=== PATIENT | female | born 1930 | race Caucasian/White ===

== ENCOUNTER 2017-03-14 19:24 | Inpatient (IN) ==
--- NOTE | 2017-03-14 20:32 | PROVIDER DOCUMENTATION ---
HPI-General Adult - General Chief Complaint: Diarrhea Stated Complaint: DIARRHEA X 2WEEKS Time Seen by Provider: 03/14/17 20:07 Source: patient Allergies/Adverse Reactions: Patient Allergies Allergy/AdvReac Type Severity Reaction Status Date / Time Sulfa (Sulfonamide Allergy RASH Verified 03/14/17 20:41 Antibiotics) Home Medications: Home Medication List Medication Instructions Recorded Confirmed Last Taken Type Alprazolam [Xanax] 0.25 mg PO DIRECTED 01/31/17 03/14/17 03/14/17 History Apixaban [Eliquis] 5 mg PO BID 01/31/17 03/14/17 03/14/17 History Clonidine [Catapres] 0.1 mg PO DIRECTED 01/31/17 03/14/17 Unknown History Potassium Chloride [Klor-Con M10] 10 meq PO DAILY 01/31/17 03/14/17 03/13/17 History Ramipril 2.5 mg PO DAILY 01/31/17 03/14/17 03/14/17 History Ropinirole [Requip] 0.25 mg PO HS 01/31/17 03/14/17 03/13/17 History Amiodarone [Cordarone] 1 tab PO DAILY 03/14/17 03/14/17 03/14/17 History Dexlansoprazole [Dexilant] 1 tab PO DAILY 03/14/17 03/14/17 03/14/17 History Diphenoxylate/Atropine [Lomotil] 5 mg PO TID 03/14/17 03/14/17 03/14/17 History Metronidazole [Metronidazole] 1 tab PO TID 03/14/17 03/14/17 03/14/17 History Clonidine [Catapres] 0.1 mg PO PRN PRN 03/15/17 03/15/17 Unknown History - History of Present Illness -Gen Adult Nature of Presenting Problems: 86 YO WF presents with 3 weeks of watery diarrhea. Has had 10-15 loose watery stools per day, 3 in the last hour. Feels "like she's going to " she feels so weak and can't control her bowels. Had a C diff test with her PCM that was negative two days ago, started on Flagyl but has only been two days on the medication. Did start to get a little more firm and brown but still having many stools. Was on Cipro before the Flagyl, but doesn't know why. No hx of recent hospitalization or other antibiotic use; no travel. Has nausea; denies abdominal pain, fever, vomiting, back pain, urinary problems/changes. Is scheduled to have a pacemaker at the end of the month. Location of Pain/Injury: reports: abdomen Pain Radiation: reports: no radiation Quality of Pain: reports: cramping Severity: reports: moderate Onset/Duration: reports: other (3 weeks ago) Timing: reports: still present Context/Activities at Onset: reports: none Modifying Factors: improves with: nothing Associated Symptoms: reports: diarrhea, fatigue, heartburn (chronic heartburn), loss of appetite, nausea, weakness. denies: anxiety, arm pain, back/neck pain, chest pain, constipation, cough, diaphoresis, dizziness, EENT symptoms, fever/ chills, genitourinary problems, headaches, malaise, muscle aches, sinus congestion/drainage, rash, seizure, shortness of breath, syncope, vomiting Similar Symptoms Previously?: No Recently seen or treated by another doctor?: Yes (Sees Dr Her; spoke with him on the phone in last few days, no eval) Review of Systems - Adult - REVIEW OF SYSTEMS - ADULT Constitutional: reports: fatique. denies: chills, fever, night sweats Eyes: denies: decreased vision, blurred vision, redness Ears, Nose, Mouth & Throat: denies: ear pain, throat pain Cardiovascular: denies: chest pain, edema, syncope Respiratory: denies: chronic cough, cough, shortness of breath, wheezing Gastrointestinal: reports: diarrhea, nausea, poor appetite. denies: abdominal pain, hematemesis, constipation, rectal bleeding, vomiting Genitourinary: denies: dysuria, discharge, frequency, flank pain, hematuria, urgency Musculoskeletal: reports: muscle weakness. denies: bone pain, back pain, joint pain, joint swelling, muscle aches, neck pain Integumentary: denies: itching, rash, skin sores/ulcer Neurological: denies: dizziness/vertigo, headache/migraines, numbness Past History - Adult - PAST MEDICAL HISTORY-ADULT Review of Records: reports: Old Records Reviewed, Nursing Assessment Review, Medications Reviewed, Social history reviewed & non-contributory. Major Childhood Illnesses: reports: denies history Cardiovascular: reports: denies history Respiratory: reports: denies history Gastrointestinal: reports: denies history Obstetrical/Gynecological: reports: denies history Genitourinary: reports: denies history Musculoskeletal: reports: denies history Neurological: reports: denies history Endocrine/Immune: reports: denies history Other Conditions: reports: denies history - PRIOR SURGERIES/PROCEDURES Surgical/Procedure History: reports: reviewed, not pertinent - IMMUNIZATION STATUS Childhood Immunizations: See Nurse Assessment Flu Vaccine: See Nurse Assessment - FAMILY HISTORY Family History: reviewed, not pertinent Physical Exam-General - PHYSICAL EXAM-ADULT Initial Vital Signs Reviewed: Yes - CONSTITUTIONAL General Appearance: appears well, alert, mild distress - EYES Eyes: PERRL/EOMI, pink conjunctivae. negative: sclera injected, scleral icterus , subconjunctival hemorrhage - HEAD, EARS, NOSE, MOUTH & THROAT HENMT: normocephalic/atraumatic, TMs normal, pharynx normal. negative: moist mucous membranes (tongue is dry), angioedema, pharyngeal erythema, tonsillar exudate, TM abnormal, TM obscurred by cerumen, frontal tenderness - NECK Neck: full range of motion, supple, normal inspection. negative: trachial deviation - RESPIRATORY Respiratory: chest non-tender, lungs clear, normal breath sounds, no pleuratic chest pain, no respiratory distress, no accessory muscle use. negative: crackles, rales, rhonchi, stridor, wheezing - CARDIOVASCULAR Cardiovascular: normal peripheral pulses, regular rate, rhythm, no edema, no gallop, no JVD, no murmur. negative: bradycardia, tachycardia - GASTROINTESTINAL (ABDOMEN) Abdominal Exam: normal bowel sounds, non tender, soft, no organomegaly, no pulsatile mass. negative: guarding, rigid, rebound, tenderness - MUSCULOSKELETAL Back Exam: normal inspection, no CVA tenderness. negative: ecchymosis, swelling Peripheral Pulses: radial (R): 2+, radial (L): 2+, dorsalis-pedis (R): 2+, dorsalis-pedis (L): 2+ - SKIN Integumentary: normal color, warm/dry, ecchymosis (on hands). negative: normal turgor (skin tenting, pt has very thin skin on hands), cyanosis, diaphoresis, erythema, mottled, pallor, petechiae, rash, swelling, tenderness - NEUROLOGIC Neurologic: software quality assurance analyst II-XII nml as tested, grossly normal. negative: aphasia, facial droop - PSYCHIATRIC Psych/Mental Status: normal mood/affect, normal thought content, normal thought process Progress - PLAN OF CARE/RESULTS Progress/Plan/Lab Results: Vital Signs - 8 hr 03/14/17 19:26 Temperature 98.1 F Pulse Rate 64 Respiratory Rate 17 Blood Pressure 168/72 O2 Sat by Pulse Oximetry 98 Orders Category Date Time Status Saline Loc DIRECTED Care 03/14/17 20:25 Active CBC WITH ELECTRONIC DIFF [HEME] Stat Lab 03/14/17 20:25 Uncollected COMPREHENSIVE METABOLIC PANEL [CHEM] Stat Lab 03/14/17 20:25 Uncollected URINALYSIS W/POSS RFLX CULT-1 [URINALYSIS] Stat Lab 03/14/17 20:25 Uncollected Result Diagrams: 03/14/17 20:20 03/14/17 20:20 - REASSESSMENT Reassessment #1 Time Reassessed: 22:08 (Dr. Womack at bedside.) Reassessment #2 Time Reassessed: 22:19 (Recommend admission for weakness, intractable Nausea and diarrhea ) - CONSULTS/PCP/HOSPITALIST Notification #1 *Consult/PCP/Hospitalist*: Dr Leos, Hospitalist Time Discussed: 22:22 (Discussed admission for weakness, diarrhea and nausea x 3 weeks) Departure - Departure Time of Disposition Decision: 22:19 DIAGNOSIS: Weakness Diarrhea Qualifiers: Diarrhea type: unspecified type Qualified Code(s): R19.7 - Diarrhea, unspecified Disposition: ADMITTED INPATIENT 09 Certified Medical Emergency: Emergent Condition: Stable - Critical Care Note This patient required my direct & personal management of CC.: No Attestation - Physician/ LESLIE Attestation Patient care was provided by Advanced Practice Provider:: Yes Advanced Practice Provider:: Robert Hogan Advanced Practice Provider documentation review:: The Mid-level provider documentation, treatment plan and medical decision making was reviewed by the physician who agrees with all treatment and medical decision making by the MLP. The physician spent face to face time with patient:: Yes Advanced Practice Provider documentation review:: The physician spent face to face time with this patient and agrees with all MLP documentation, treatment, and medical decision making by the MLP. See provider notes for further information.
[2017-03-14 20:49] LABS: MANUAL DIFF NEEDED? NO
[2017-03-14 20:57] LABS: BASO% 0.4 % (0.0-0.8); EOS# 0.01 X1000 (0.0-0.7); EOS% 0.2 % (0.0-10.0); HEMATOCRIT 35.1 % (37.0-47.0); LYMPH# 1.06 X1000 (1.2-3.4); LYMPH% 20.8 % (20.5-51.1); MCH 30.7 PG (27-31); MCHC 34.2 g/dL (33-37); MCV 89.8 FL (81-99); MONO# 0.82 X1000 (0.11-0.59); MONO% 16.1 % (1.7-9.3); MPV 10.2 FL (7.4-10.4); NEUT% 62.5 % (42.2-75.2); PLT 195 X1000 (130-400); RBC 3.91 XMIL (4.2-5.4)
[2017-03-14] MEDS ORDERED: ZOFRAN IV ONE (21:22)
[2017-03-14 21:31] LABS: ALBUMIN 3.5 g/dL (3.5-5.0); CALCIUM 8.6 mg/dL (8.8-10.2); POTASSIUM 3.1 mmol/L (3.5-5.1); TOTAL BILIRUBIN 0.65 mg/dL (0.20-1.00); TOTAL PROTEIN 6.2 g/dL (6.3-8.3)
[2017-03-14] MEDS ORDERED: KLOR-CON PO ONE (22:06)
[2017-03-14] MEDS ORDERED: POTASSIUM CHLORIDE 10 MEQ in NS 1,000 ML IV SCH (22:18)
[2017-03-14] MEDS ORDERED: TYLENOL PO PRN (23:22)
[2017-03-14] MEDS ORDERED: CATAPRES PO PRN (23:22)
[2017-03-14] MEDS ORDERED: SODIUM CHLORIDE 0.9% INJ ONE (23:22)
[2017-03-14] MEDS ORDERED: BISMATROL PO ONE (23:22)
[2017-03-14] MEDS: NS + KCL 20 MEQ 1,000 ML IV SCH (23:56)
--- NOTE | 2017-03-15 07:24 | HISTORY AND PHYSICAL ---
REASON FOR ADMISSION: A 3-week history of persistent diarrhea. Mr. Julia Patten is an 86-year- old lady with past medical history of hypertension, atrial fibrillation, presumptive restless leg syndrome, and symptomatic bradycardia. She reports that 3 weeks ago both she and her sister, who lives with her on an off, developed persistent nausea and diarrhea. No vomiting. Her diarrhea is reportedly non-bloody, non-mucoid, with no melena. Her sister has since recovered over 2 weeks ago, but she continues to have anywhere from 10-20 loose stools. They are aggravated by eating, but also wakes her up at night. She denies any abdominal pain but occasionally has abdominal cramping preceding her bowel movements. No fever, no chills. He denies any antecedent use of antibiotics. She was given Flagyl and ciprofloxacin by her tube pusher after her stool for clostridium difficile was negative just over a week ago. Neither the ciprofloxacin and Flagyl have helped ameliorate her diarrhea. Denies any change in her medications. No travel. No contact with sick animals. REVIEW OF SYSTEMS: Twelve system reviewed is negative, other than being positive for generalized weakness, thirst, and postural dizziness. No cramping. No cardiorespiratory complaints. By the way, patient is scheduled for pacemaker insertion on 01 April because of bradycardia. ALLERGIES: Sulfa. HOME MEDICATIONS: Xanax 0.25 mg as directed, amiodarone 20 mg daily, Eliquis 5 mg b.i.d., clonidine 0.1 mg p.r.n., Dexilant 60 mg daily, Lomotil 5 mg t.i.d. for the last 2 days, Flagyl 250 mg t.i.d., potassium chloride 10 mEq daily, ramipril 2.5 mg daily, Requip 0.25 mg at bedtime. SURGICAL HISTORY: She has had a hysterectomy, hernia repair, thyroidectomy, and left foot surgery. FAMILY HISTORY: Not reviewed in detail, but she does deny any bowel cancers in first-degree relatives. SOCIAL HISTORY: Lives with her sister. Does not smoke drink or use illicit drugs. PAST MEDICAL HISTORY: Includes atrial fibrillation, mitral valve prolapse, and reflux disease. Recently had an esophagogastroduodenoscopy a few weeks ago and was told she had reflux but no gross abnormalities noted. White count 5000, hemoglobin and hematocrit 12 and 35, platelets 195,000, with normal differential. Potassium 3.1. BUN 14, creatinine 1.3. PHYSICAL EXAMINATION: VITAL SIGNS: Heart rate is 59, temperature is 98.1, blood pressure 171/74, respirations 17, 96% on room air. She is a thin, elderly, woman, who is not in acute distress. She is alert and oriented x3. Normal mood and affect. HEAD: Head is normocephalic, atraumatic. EYES: Pupils equal, round, and reactive to light and accommodation. Extraocular movements intact. She is anicteric and not pale. ENT AND OROPHARYNX EXAMINATION: Grossly normal. No oropharyngeal exudates or cyanosis noted. NECK: Supple. No jugular venous distention or carotid bruit. No thyromegaly. LYMPH NODE EXAMINATION: Grossly normal. CHEST: The patient has chest that is clear to auscultation with good air entry in both lung [place]. CARDIOVASCULAR SYSTEM: First and second heart sounds were heard. No gallops, murmurs, rubs. Rhythm is irregular. ABDOMEN: Soft, slightly protuberant. No focal areas of tenderness. No masses. Bowel sounds are hyperactive. RECTAL EXAMINATION: Deferred at this time. EXTREMITIES: Pulses distally in all extremities. Have good bone mass, symmetrical. No edema, no clubbing, no peripheral cyanosis. NEUROLOGICAL EXAMINATION: No focal deficits. No tremors. SKIN: Is intact with decreased turgor. MUSCULOSKELETAL EXAMINATION: Grossly normal. ASSESSMENT: 1. Gastroenteritis. 2. Hypokalemia, secondary to #1. 3. Hypertension. 4. Dehydration. 5. Acute kidney injury secondary to dehydration. 6. Atrial fibrillation. 7. Reflux disease. PLAN: At this time, aggressive IV fluids and electrolyte replacement. I have taken liberty of ordering a CT scan of the abdomen, since a prior stool studies, i.e., clostridium difficile did not reveal any information. Due to the chronic nature of her diarrhea, it would be prudent to rule out with low-level colitis or some other intraluminal pathology. We will consult Dr. Magallon to see patient. Repeat stool studies again. Diarrhea seems more consistent with secretory versus anastomotic type diarrhea. Stool electrolytes have also been ordered to rule osmotic diarrhea. Ordered TSH, on account of the patient having a thyroidectomy. Follow electrolytes closely and replace them as needed. My suspicion is that this could be a drawn out viral gastroenteritis, based on the fact that her sister had similar symptoms and since recovered. cc: MD Ehsan Marrero MD Olakunle P. Akinsoto, MD Dr. Mann MTDD
[2017-03-15 07:53] LABS: ALBUMIN 2.7 g/dL (3.5-5.0); CALCIUM 7.8 mg/dL (8.8-10.2); MAGNESIUM 1.8 mg/dL (1.5-2.7); POTASSIUM 2.9 mmol/L (3.5-5.1); TOTAL BILIRUBIN 0.54 mg/dL (0.20-1.00); TOTAL PROTEIN 4.9 g/dL (6.3-8.3)
[2017-03-15 09:15] LABS: BASO% 0.5 % (0.0-0.8); EOS# 0.04 X1000 (0.0-0.7); HEMATOCRIT 31.6 % (37.0-47.0); HEMOGLOBIN 10.5 g/dL (12.0-16.0); LYMPH# 1.05 X1000 (1.2-3.4); LYMPH% 27.3 % (20.5-51.1); MANUAL DIFF NEEDED? YES; MCH 30.1 PG (27-31); MCHC 33.2 g/dL (33-37); MCV 90.5 FL (81-99); MONO# 0.77 X1000 (0.11-0.59); MONO% 20.1 % (1.7-9.3); MPV 10.3 FL (7.4-10.4); NEUT% 51.1 % (42.2-75.2); PLT 168 X1000 (130-400); RBC 3.49 XMIL (4.2-5.4)
[2017-03-15] MEDS: PROTONIX IV SCH (10:30)
[2017-03-15] MEDS: LOMOTIL PO SCH ×3 (10:30→17:01)
[2017-03-15] MEDS: NS + KCL 20 MEQ 1,000 ML IV SCH ×3 (10:30→19:53)
[2017-03-15] MEDS: KLOR-CON PO SCH (10:31)
[2017-03-15] MEDS: ELIQUIS PO SCH ×2 (10:31→20:51)
[2017-03-15] MEDS: ALTACE PO SCH (10:31)
[2017-03-15] MEDS: CORDARONE PO SCH (10:31)
[2017-03-15 10:40] LABS: BANDS 4 % (0-1)
[2017-03-15 10:41] LABS: HYPOCHROM 2+; LYMPHS 36 % (21-51); MONO 12 % (1-9)
[2017-03-15] MEDS: POTASSIUM CHLORIDE 60 MEQ in NS 500 ML IV SCH ×2 (13:25→21:51)
--- NOTE | 2017-03-15 14:17 | PROGRESS NOTE ---
DATE: 03/15/2017 SUBJECTIVE: Patient continues to have persistent diarrhea 10-15 times per day. No fever or chills noted. OBJECTIVE: Vital Signs: Temperature 98.0 degrees, heart rate 50, respiratory rate 18, blood pressure 122/60. O2 saturation 96% on room air. General Examination: This is a thin and elderly 86-year-old female lying in bed, in no acute distress. HEENT: Head is normocephalic, atraumatic. Anicteric sclerae and pale conjunctivae. Mucous membranes moist. Neck: Supple. No JVD noted. No carotid bruits. No lymphadenopathy. No thyromegaly. Cardiovascular: S1, S2 heard. No murmurs, gallops, or rubs. Regular rate and rhythm. Respiratory: Clear bilaterally to auscultation. No work of breathing or using accessory muscles. Abdomen: Soft, is slightly protuberant but nontender to palpation. No signs of peritoneal irritation. Bowel sounds present. No organomegaly. Extremities: Peripheral pulses present in both legs. Neurological: Patient is alert and oriented x3. Moves 4 extremities. LABORATORY DATA: Reveals white cell count normal, hemoglobin 10.5. Potassium 2.9. ASSESSMENT AND PLAN: 1. Chronic diarrhea. 2. Gastroenteritis. 3. Hypokalemia secondary to #1. 4. Hypertension. 5. Dehydration. 6. Acute kidney injury. PLAN: The patient is being admitted for an episode of almost 3 weeks history of diarrhea. Patient does not report any fever. Here in the ER she was evaluated and the potassium was low and that is still low so we are going to replete potassium per protocol. The patient has been given Flagyl and Cipro for 1 week but she was able to just take for 1 day and then she decided to come to the hospital. At this time, we are going to restart those medications. GI is on board. We will follow recommendations. For the rest medical condition we will continue with the same treatment. cc: Wil Giordano MD
[2017-03-15] MEDS: LEVAQUIN 750 MG/D5W 750 MG/150 ML IVPB IV SCH (15:13)
--- NOTE | 2017-03-15 15:28 | Diag Imaging Result Document ---
PROCEDURE NAME: ABDOMEN/PELVIS W/WO CONTRAST - 03/15/2017 CT ABDOMEN AND PELVIS WITH AND WITHOUT INTRAVENOUS CONTRAST. FINDINGS: Noncontrasted images performed. Small infiltrates or atelectasis in the left base. The heart is enlarged. No renal stones. No hydronephrosis. Moderate atherosclerosis. No aneurysmal dilatation to the aorta. Postcontrasted images performed. Normal spleen, pancreas, liver, and kidneys. There is thickening to the adrenal glands, but no distinct nodules. Sludge or hyperdense bile in the gallbladder. No adjacent inflammation. There is oral contrast throughout the small bowel. There is air and fluid throughout the colon. Questionable mild wall thickening in the colon most pronounced in the sigmoid colon. No abscess. No free air. IMPRESSION: 1. Questionable colitis in the sigmoid colon. 2. No renal stones or hydronephrosis. 3. Hysterectomy. 4. Cardiomegaly with left basilar atelectasis or tiny infiltrate. A preliminary report was given at 3:14 p.m.
[2017-03-15] MEDS: FLAGYL 500 MG/NS 500 MG/100 ML IVPB IV SCH (17:01)
[2017-03-15] MEDS: REQUIP PO SCH (20:51)
[2017-03-15] MEDS: XANAX PO PRN (20:51)
[2017-03-15 21:33] LABS: URINE CULTURE NEEDED? NO; URINE MICRO REVIEW NEEDED? NO; URINE SOURCE CLEAN CATCH
[2017-03-15 21:36] LABS: BILIRUBIN URINE NEGATIVE (NEGATIVE); BLOOD URINE NEGATIVE (NEGATIVE); COLOR YELLOW; GLUCOSE URINE NEGATIVE (NEGATIVE); LEUKOCYTES URINE TRACE (NEGATIVE); NITRITE URINE NEGATIVE (NEGATIVE); PROTEIN URINE NEGATIVE (NEGATIVE); SP GRAVITY URINE 1.021; TURBIDITY URINE CLEAR (CLEAR); UROBILINOGEN URINE NORMAL (NORMAL)
[2017-03-15 21:38] LABS: UR EPITHELIAL CELLS <10 /HPF (<10); URINE BACTERIA 1+ /HPF; URINE RBC <10 /HPF (<10); URINE WBC <10 /HPF (<10)
--- NOTE | 2017-03-15 23:51 | CONSULTATION ---
DATE OF CONSULTATION: 03/15/2017 PRIMARY CARE PROVIDERS: Anita Johnson M.D. PRIMARY HOSPITALIST: Wil Pereyra M.D. PRIMARY CRYPTOLOGIC SUPPORT SPECIALIST: Ehsan Magallon M.D. INDICATION FOR CONSULTATION: Diarrhea. HISTORY OF PRESENT ILLNESS: The patient is an 86-year-old white female who has a past medical history of hypertension, atrial fibrillation, restless legs syndrome and symptomatic bradycardia. Approximately 3 weeks ago, she and her sister developed nausea and diarrhea. Her sister's diarrhea resolved but she continued to have diarrhea. She was treated with Pepto-Bismol and antidiarrheals by primary care physician. She spoke with Dr. Magallon who prescribed ciprofloxacin and Flagyl last week without interval improvement. Stool studies as an outpatient have been negative for C. difficile as a cause of her symptoms. Because her symptoms persisted, she presented to the emergency room for further evaluation. She was found to have a left-sided colitis on CT scan. She is admitted for further evaluation and management. REVIEW OF SYSTEMS: Remarkable for increased thirst, dizziness and abdominal cramping. She states that she has had an interval improvement since she has been admitted overnight. PAST MEDICAL HISTORY: 1. Hypertension. 2. Atrial fibrillation. 3. Restless legs syndrome. 4. Symptomatically bradycardia. 5. Restless legs syndrome. 6. Mitral valve prolapse. 7. Gastroesophageal reflux disease. PAST SURGICAL HISTORY: 1. Hysterectomy. 2. Hernia repair. 3. Thyroidectomy. 4. Left foot surgery. MEDICATION ALLERGIES: Sulfa. HOME MEDICATIONS: 1. Xanax. 2. Amiodarone. 3. Eliquis. 4. Clonidine. 5. Dexilant. 6. Lomotil. 7. Flagyl. 8. Potassium chloride. 9. Ramipril. 10. Requip. FAMILY HISTORY: Negative for colon cancer in first-degree relatives. SOCIAL HISTORY: Patient denies alcohol, tobacco, recreational drug use. She is a recent . She lives alone but her sister spends 2-3 nights per week with her. PHYSICAL EXAM: General: She is in no acute distress. Vital signs: Her blood pressure is 122/60, pulse of 50, respiration 18, temperature of 98.0 degrees. HEENT: Notable for dry oropharyngeal mucosa. Her sclerae are anicteric and conjunctivae are normal. Cardiovascular: She has a mild bradycardia with a regular rhythm. There is no evidence of atrial fibrillation on exam today. Pulmonary: Lungs are clear to auscultation with normal respiratory effort. Abdominal exam: Reveals normoactive bowel sounds. The abdomen is soft, nontender with no rebound or guarding. Extremities: Bilaterally are negative for cyanosis, clubbing or edema. OBJECTIVE DATA: Reveals a hemoglobin of 10.5 with hematocrit of 31.6 and white count of 3.84 with 168,000 platelets. Sodium is 139, potassium 2.9, chloride 105, CO2 27, BUN 11, creatinine 0.9 with a glucose 75. Calcium 7.8, magnesium 1.8, total bilirubin 0.54, AST 21, ALT 13, alkaline phosphatase 53, total protein 4.9 with an albumin of 2.7. IMPRESSION: 1. Acute colitis primarily involving the sigmoid colon. 2. Anemia. 3. Hypokalemia. 4. Gastroesophageal reflux disease. RECOMMENDATION: 1. I agree with IV antibiotics including Levaquin and Flagyl. 2. Continue Protonix 40 mg IV q.24 hours. 3. Correct the potassium as you are doing. 4. The patient may require a colonoscopy either as an inpatient or outpatient. However, over the weekend I would continue current management. 5. Dr. Ehsan Magallon will return on Friday to assume care. He will make the final determination regarding the timing of a colonoscopy. cc: Ehsan Magallon MD MTDD
[2017-03-16] MEDS: FLAGYL 500 MG/NS 500 MG/100 ML IVPB IV SCH ×3 (00:49→17:53)
[2017-03-16] MEDS: NS + KCL 20 MEQ 1,000 ML IV SCH ×3 (02:50→17:53)
[2017-03-16 07:06] LABS: MANUAL DIFF NEEDED? NO
[2017-03-16 07:08] LABS: BASO% 0.5 % (0.0-0.8); EOS# 0.02 X1000 (0.0-0.7); EOS% 0.5 % (0.0-10.0); HEMATOCRIT 31.5 % (37.0-47.0); HEMOGLOBIN 10.4 g/dL (12.0-16.0); LYMPH# 0.89 X1000 (1.2-3.4); LYMPH% 22.6 % (20.5-51.1); MCH 30.3 PG (27-31); MCV 91.8 FL (81-99); MONO# 0.72 X1000 (0.11-0.59); MONO% 18.3 % (1.7-9.3); MPV 9.6 FL (7.4-10.4); NEUT% 58.1 % (42.2-75.2); PLT 153 X1000 (130-400); RBC 3.43 XMIL (4.2-5.4)
[2017-03-16 07:32] LABS: AGAP 8; BUN 8 mg/dL (8-22); CALCIUM 7.8 mg/dL (8.8-10.2); CHLORIDE 110 mmol/L (98-107); COSMO 280; POTASSIUM 4.1 mmol/L (3.5-5.1); SODIUM 142 mmol/L (136-145); TCO2 24 mmol/L (25-35)
[2017-03-16] MEDS ORDERED: SODIUM CHLORIDE 0.9% 10 ML ONE (07:58)
[2017-03-16] MEDS: PROTONIX IV SCH (09:22)
[2017-03-16] MEDS: KLOR-CON PO SCH (09:23)
[2017-03-16] MEDS: LOMOTIL PO SCH ×3 (09:23→17:53)
[2017-03-16] MEDS: CORDARONE PO SCH (09:23)
[2017-03-16] MEDS: ALTACE PO SCH (09:23)
[2017-03-16] MEDS: ELIQUIS PO SCH ×2 (09:23→20:03)
[2017-03-16] MEDS: LEVAQUIN 750 MG/D5W 750 MG/150 ML IVPB IV SCH (13:31)
--- NOTE | 2017-03-16 15:35 | PROGRESS NOTE ---
DATE: 03/16/2017 SUBJECTIVE: Patient is having diarrhea like 5 times in the last night. OBJECTIVELY: Vitals: Temperature 97.8 degrees, heart rate 78, blood pressure 135/47, O2 saturation 92% on room air. General Examination: This is a thin and elderly 86-year-old female lying in bed in no acute distress. HEENT: Head is normocephalic, atraumatic. Anicteric sclerae and pale conjunctivae. Mucous membranes moist. Neck: Supple. No JVD noted. No carotid bruits. No lymphadenopathy. No thyromegaly. Cardiovascular: S1 and S2 heard. No murmurs, gallops, rubs and regular rate and rhythm. Respiratory: Clear bilaterally to auscultation. No work of breathing or using accessory muscles. Abdomen: Soft, slightly protuberant but nontender to palpation. No signs of peritoneal irritation. Bowel sounds present. No organomegaly. Extremities: No clubbing, cyanosis or edema. Peripheral pulses present in both legs. Neuro: Patient alert, oriented x3. LABORATORY DATA: The CBC unremarkable, BMP unremarkable as well. ASSESSMENT AND PLAN: 1. Chronic diarrhea 2. Gastroenteritis. 3. Hypertension. 4. Dehydration. 5. Acute kidney injury. Patient has been admitted for 2-3 weeks episodes of diarrhea. Acute kidney injury and hypokalemia are resolved. The CT of the abdomen shows colitis so she was started on levofloxacin and Flagyl so today she is still having diarrhea so will see for tomorrow she improves. Patient has been evaluated Dr. Adames and tomorrow Dr. Magallon will see this patient because he is the primary GI doctor. cc: Wil Giordano MD
--- NOTE | 2017-03-16 19:36 | PROGRESS NOTE ---
DATE: 03/16/2017 SUBJECTIVE: The patient states that she is feeling significantly better today. She notes that her stools are less frequent. She notes that she continues to have diarrhea, but the volume has decreased considerably. Unfortunately, she has had 7 bowel movements in the last 24 hours. There was no evidence of bleeding. OBJECTIVE: General: On exam, she is in no acute distress. Vital signs: Her blood pressure is 114/86, pulse of 51, respiration 20, temperature of 97.9 degrees. HEENT: Negative. Lungs: Are clear to auscultation with normal expiratory effort. Cardiovascular: Reveals regular rate and rhythm with no murmurs, gallops, or rubs. Abdominal: Reveals normoactive bowel sounds. The abdomen is soft and nontender. This is an interval improvement from her initial exam which she had mild diffuse tenderness. There is no rebound or guarding. OBJECTIVE DATA: Reveals a hemoglobin of 10.4 with hematocrit of 31.5 and a white count of 3.93. She has 153,000 platelets. Sodium 142, potassium 4.1, chloride 110, CO2 24, BUN 8, creatinine 0.7, with a glucose of 78, and calcium of 7.8. RECOMMENDATION: 1. Continue Levaquin and Flagyl. 2. Continue IV fluids for hydration. 3. Ehsan Magallon M.D. will return in the morning to assume care. Additional recommendations will be deferred to Dr. Ehsan Magallon. 4. We await the results of her pending laboratory. cc: MD Anita Lauren MD Khurshid Yousuf, MD Cesar Garcia-Rodriguez, MD MTDD
[2017-03-16] MEDS: XANAX PO PRN (20:03)
[2017-03-16] MEDS: REQUIP PO SCH (20:03)
[2017-03-17] MEDS: FLAGYL 500 MG/NS 500 MG/100 ML IVPB IV SCH ×3 (01:15→16:16)
[2017-03-17 07:00] LABS: MANUAL DIFF NEEDED? NO
[2017-03-17 07:06] LABS: BASO% 0.2 % (0.0-0.8); EOS# 0.05 X1000 (0.0-0.7); EOS% 1.1 % (0.0-10.0); HEMATOCRIT 31.5 % (37.0-47.0); HEMOGLOBIN 10.3 g/dL (12.0-16.0); LYMPH# 1.07 X1000 (1.2-3.4); LYMPH% 24.2 % (20.5-51.1); MCH 30.1 PG (27-31); MCHC 32.7 g/dL (33-37); MCV 92.1 FL (81-99); MONO# 0.56 X1000 (0.11-0.59); MONO% 12.6 % (1.7-9.3); MPV 10.3 FL (7.4-10.4); NEUT% 61.9 % (42.2-75.2); PLT 157 X1000 (130-400); RBC 3.42 XMIL (4.2-5.4)
[2017-03-17] MEDS ORDERED: SODIUM CHLORIDE 0.9% 10 ML ONE (07:31)
[2017-03-17 07:37] LABS: AGAP 8; BUN 6 mg/dL (8-22); CALCIUM 7.7 mg/dL (8.8-10.2); CHLORIDE 107 mmol/L (98-107); COSMO 274; POTASSIUM 3.8 mmol/L (3.5-5.1); SODIUM 139 mmol/L (136-145); TCO2 24 mmol/L (25-35)
[2017-03-17] MEDS: LOMOTIL PO SCH ×3 (10:14→17:35)
[2017-03-17] MEDS: PROTONIX IV SCH (10:15)
[2017-03-17] MEDS: ALTACE PO SCH (10:15)
[2017-03-17] MEDS: KLOR-CON PO SCH (10:16)
[2017-03-17] MEDS: ELIQUIS PO SCH (10:16)
[2017-03-17] MEDS: CORDARONE PO SCH (10:16)
[2017-03-17] MEDS: LEVAQUIN 750 MG/D5W 750 MG/150 ML IVPB IV SCH (13:20)
--- NOTE | 2017-03-17 13:54 | PROGRESS NOTE ---
DATE: 03/17/2017 SUBJECTIVE: Patient reports still having diarrhea, like 10 times per day and at least 3-4 overnight. No abdominal pain. No fever or chills. OBJECTIVE: Vital Signs: Temperature 97.7 degrees, heart rate 57, respiratory rate 165/80, O2 saturation 97% on room air. General Examination: This is an thin and elderly 86-year-old female, lying in bed, in no acute distress. HEENT: Head is normocephalic, atraumatic. Anicteric sclerae and pale conjunctivae. Mucous membranes moist. Neck: Supple. No jugular venous distention noted. No carotid bruits. No lymphadenopathy. No thyromegaly. Cardiovascular: S1, S2 heard. No murmurs, gallops, or rubs. Regular rate and rhythm. Respiratory Examination: Clear bilaterally to auscultation. No work of breathing or using accessory muscles. Abdomen: Soft, nontender to palpation. Bowel sounds present. No organomegaly. Extremities: No clubbing, cyanosis, or edema. Peripheral pulses present in both legs. Neurological Examination: Patient alert oriented x3. Able to move 4 extremities. Cranial nerves 2-12 grossly normal. LABORATORY DATA: BMP and CBC unremarkable. ASSESSMENT AND PLAN: 1. Gastroenteritis. 2. Acute diarrhea. 3. Hypertension. 4. Dehydration. 5. Acute kidney injury. The patient was admitted to the hospital because of history of 2-3 weeks of diarrhea, 10-15 times per minute. Just few days before she was admitted, clostridium difficile infection was ruled out. The CT of the abdomen shows colitis so Levaquin and Flagyl has been started, but unfortunately these medication does not seem to be working because the patient is still having the same out of diarrhea this admission. Dr. Magallon is his primary gastrointestinal doctor, and as per conversation with his nurse practitioner, the patient is going to have a colonoscopy tomorrow. We will follow recommendations. Regarding acute kidney injury, that condition is completely resolved. Hypertension. Regarding hypertension. Blood pressure is in the range of 160 and 170. Currently this patient is taking only clonidine 0.1 mg p.o. p.r.n. and ramipril 2.5. We are going to increase the doses of those medications. cc: Wil Giordano MD
[2017-03-17] MEDS ORDERED: MISC. PHARMACY COMMUNICATION SCH (14:30)
[2017-03-17] MEDS: NS + KCL 20 MEQ 1,000 ML IV SCH ×3 (16:16→16:25)
[2017-03-17] MEDS: ZOFRAN IV PRN (17:43)
[2017-03-17] MEDS: NON-FORMULARY BULK MED PO SCH (17:44)
--- NOTE | 2017-03-17 18:36 | PROGRESS NOTE ---
DATE: 03/17/2017 SUBJECTIVE: Patient is still having diarrhea. She has had multiple loose stools/ watery stools today. She reports occasional abdominal cramping, urgency. No reported bleeding OBJECTIVE: Vital signs: Temperature 97.7 degrees, pulse 57, respirations 18, blood pressure 165/80. General: Patient is awake, alert, in no acute distress. She is lying in the bed. HEENT: Normocephalic, atraumatic. Pupils equal, round, reactive to light. Sclerae nonicteric. Respiratory: Lung sounds essentially clear bilaterally. Cardiovascular: Regular rate and rhythm. Abdomen: Soft, nontender. Positive bowel sounds. LABORATORY RESULTS: Hematology: White count 4.43, hemoglobin 10.3, hematocrit 31.5, MCV 92.1, platelets 157,000. ASSESSMENT AND PLAN: Diarrhea. She was initially started on Flagyl as an outpatient after her stool studies were negative. She continues to have symptoms of diarrhea despite antibiotic treatment. CT of the abdomen showed colitis. We will proceed with a colonoscopy tomorrow. Further plans to be made according to findings. I have discussed the procedure with the patient. She wishes to proceed. I have discussed this case with Dr. Magallon. Dictated by LACEY Villalpando for Ehsan Magallon MD cc: LACEY Castro MD
[2017-03-17] MEDS: XANAX PO PRN (20:54)
[2017-03-17] MEDS: REQUIP PO SCH (20:55)
[2017-03-17] MEDS ORDERED: HEPARIN ONE (22:33)
[2017-03-18] MEDS: NS + KCL 20 MEQ 1,000 ML IV SCH ×2 (02:11→14:42)
[2017-03-18] MEDS: FLAGYL 500 MG/NS 500 MG/100 ML IVPB IV SCH ×2 (02:51→09:30)
[2017-03-18] MEDS: NON-FORMULARY BULK MED PO SCH (06:28)
[2017-03-18 06:33] LABS: MANUAL DIFF NEEDED? NO
[2017-03-18 06:57] LABS: BASO% 0.4 % (0.0-0.8); EOS# 0.05 X1000 (0.0-0.7); EOS% 0.9 % (0.0-10.0); HEMATOCRIT 33.3 % (37.0-47.0); HEMOGLOBIN 10.8 g/dL (12.0-16.0); LYMPH# 0.79 X1000 (1.2-3.4); LYMPH% 14.6 % (20.5-51.1); MCH 29.4 PG (27-31); MCHC 32.4 g/dL (33-37); MCV 90.7 FL (81-99); MONO# 0.67 X1000 (0.11-0.59); MONO% 12.4 % (1.7-9.3); MPV 10.4 FL (7.4-10.4); NEUT% 71.7 % (42.2-75.2); PLT 169 X1000 (130-400); RBC 3.67 XMIL (4.2-5.4)
[2017-03-18 07:13] LABS: AGAP 11; BUN 3 mg/dL (8-22); CALCIUM 8.1 mg/dL (8.8-10.2); CHLORIDE 103 mmol/L (98-107); COSMO 275; POTASSIUM 3.2 mmol/L (3.5-5.1); SODIUM 140 mmol/L (136-145); TCO2 26 mmol/L (25-35)
[2017-03-18] MEDS ORDERED: SODIUM CHLORIDE 0.9% 10 ML ONE (07:29)
[2017-03-18] MEDS: PROTONIX IV SCH (09:30)
[2017-03-18] MEDS: LOMOTIL PO SCH ×3 (09:45→18:35)
[2017-03-18] MEDS ORDERED: ANESTHESIA PB SET 88 IN 5742 ONE (13:31)
[2017-03-18] MEDS ORDERED: EXTENSION SET 32 IN 4522 ONE (13:31)
[2017-03-18] MEDS ORDERED: LR 1,000 ML ONE (13:31)
[2017-03-18] MEDS ORDERED: XYLOCAINE-MPF 2% ONE (13:31)
[2017-03-18] MEDS ORDERED: DIPRIVAN 1% ONE (14:34)
[2017-03-18] MEDS: KLOR-CON PO SCH (14:44)
[2017-03-18] MEDS: ALTACE PO SCH (14:44)
[2017-03-18] MEDS: CORDARONE PO SCH (14:44)
[2017-03-18] MEDS: WELCHOL PO SCH ×2 (14:44→20:52)
--- NOTE | 2017-03-18 15:08 | PROGRESS NOTE ---
DATE: 03/17/2017 SUBJECTIVE: This patient states that she is feeling better. She just came back from colonoscopy. Apparently she just had diverticulosis and 1 polyp that was biopsied and she is not complaining at this moment of abdominal pain. No fever, no chills. She states that she had so far 1 big loose BM and 2 or 3 small BMs but she is not sure about if this is her diarrhea or the bowel preparation to the colonoscopy. OBJECTIVE: Vital Signs: Temperature 97.8 degrees, pulse 90, respiratory rate 20, blood pressure 130/68, O2 saturation 93 on room air. HEENT: Head normocephalic. No trauma. PERRLA. Neck: Supple. No JVD. No masses. Central trachea. Chest: Clear to auscultation. No wheezing. No rales. Cardiovascular: RRR. No murmurs. Abdomen: Soft, nontender, nondistended. No hepatosplenomegaly. Extremities: No clubbing, no edema. No cyanosis. Neurological: The patient is alert and oriented x3. No focal neurological deficits. LABORATORY: WBC 5.4, hemoglobin 10.8, hematocrit 33.3, platelet 169,000. Sodium 140, potassium 3.2, chloride 103, bicarbonate 26, BUN 3, creatinine 0.6, glucose 74, calcium 8.1. ASSESSMENT AND PLAN: 1. Acute diarrhea, unknown origin. This patient is getting antibiotics levofloxacin and metronidazole, apparently this is getting better. Will continue with the same management. Gastroenterology department is following this patient. 2. Gastroenteritis. As I mentioned before will continue with the antibiotics. Also she is getting IV fluids. 3. Hypokalemia. Potassium has been added to the intravenous fluids. Will continue to monitor. 4. Hypertension. Continue with the same management. The blood pressure is stable. 5. Acute kidney injury resolved. cc: Derrick Berry MD
--- NOTE | 2017-03-18 17:29 | OPERATIVE NOTE ---
PROCEDURE DATE: 03/18/2017 PROCEDURE: Colonoscopy. PREOPERATIVE DIAGNOSIS: Diarrhea. POSTOPERATIVE DIAGNOSIS: Diverticulosis. Otherwise normal colon. HISTORY: This is an 86-year-old lady admitted to the hospital after she had a couple weeks of diarrhea. She had electrolyte imbalances which were connected and she has been hydrated. Colonoscopy was done to identify the etiology and treat accordingly. OPERATION IN DETAIL: Informed consent obtained from the patient. The procedure, risks, benefits, alternatives were explained in layman's terms. She understood. All the pertinent questions were answered. Patient was brought to the endoscopy unit and was premedicated as per Anesthesia. After adequate sedation, while she was lying in left lateral position, digital rectal exam was performed, which was normal. The scope was then gently introduced into the rectum and advanced under direct vision through the parts of the colon all the way up to the cecum. Cecum was identified by ileocecal valve and appendiceal orifice. Scope was then passed through the ileocecal valve into terminal ileum. About 5 to 8 cm of terminal ileum was examined, which was normal. The scope was withdrawn back into the cecum, back through the parts of colon, all the way up the rectum, paying careful attention to detail. Preparation was good. The visualized portion of the colon revealed scattered diverticula predominantly on the left side. There was no ulcer, AVM or masses seen. I did not see any evidence of colitis, infectious or otherwise. Random biopsies were taken from different parts of the colon to check for microscopic colitis. The scope was withdrawn. Patient tolerated the procedure with no complication noted. Patient was then transferred to the recovery area in a stable condition. IMPRESSION: Diverticulosis. Otherwise, normal colon. Biopsies done to check for microscopic colitis. RECOMMENDATION: I would continue her symptomatic treatment. Start her on a full liquid diet. Follow up the biopsy report and depending on her progress, further plans made. In the meantime, there was no reason for her to continue antibiotics because there was no evidence of infection. At this point, I would hold off antibiotic and stop her IV proton pump inhibitor and will follow. cc: Ehsan Magallon MD
[2017-03-18] MEDS: REQUIP PO SCH (20:52)
[2017-03-18] MEDS: ELIQUIS PO SCH (20:52)
[2017-03-18] MEDS: ZOFRAN IV PRN (20:52)
[2017-03-18] MEDS: XANAX PO PRN (20:52)
[2017-03-18] MEDS: ZANTAC PO SCH (20:52)
[2017-03-19 06:13] LABS: MANUAL DIFF NEEDED? NO
[2017-03-19 06:31] LABS: BASO% 0.4 % (0.0-0.8); EOS# 0.07 X1000 (0.0-0.7); EOS% 1.2 % (0.0-10.0); HEMOGLOBIN 10.4 g/dL (12.0-16.0); IMM GRAN# 0.02 X1000 (0.0-0.04); IMM GRAN% 0.4 % (0.0-0.5); LYMPH# 1.02 X1000 (1.2-3.4); LYMPH% 18.1 % (20.5-51.1); MCH 29.5 PG (27-31); MCHC 32.5 g/dL (33-37); MCV 90.7 FL (81-99); MONO# 0.56 X1000 (0.11-0.59); MONO% 9.9 % (1.7-9.3); PLT 167 X1000 (130-400); RBC 3.53 XMIL (4.2-5.4)
[2017-03-19 06:32] LABS: AGAP 7; BUN 3 mg/dL (8-22); CALCIUM 7.6 mg/dL (8.8-10.2); CHLORIDE 108 mmol/L (98-107); COSMO 278; POTASSIUM 3.5 mmol/L (3.5-5.1); SODIUM 142 mmol/L (136-145); TCO2 27 mmol/L (25-35)
[2017-03-19] MEDS: NS + KCL 20 MEQ 1,000 ML IV SCH ×5 (06:34→20:38)
[2017-03-19] MEDS: ELIQUIS PO SCH ×2 (08:36→20:39)
[2017-03-19] MEDS: LOMOTIL PO SCH ×3 (08:36→16:44)
[2017-03-19] MEDS: ZANTAC PO SCH ×2 (08:37→20:39)
[2017-03-19] MEDS: KLOR-CON PO SCH (08:37)
[2017-03-19] MEDS: CORDARONE PO SCH (08:37)
[2017-03-19] MEDS: WELCHOL PO SCH ×2 (08:37→20:39)
[2017-03-19] MEDS: ALTACE PO SCH (08:37)
--- NOTE | 2017-03-19 15:32 | PROGRESS NOTE ---
DATE: 03/19/2017 SUBJECTIVE: Patient states she is feeling better. She has had less diarrhea today. OBJECTIVE: Vital Signs: Temperature 98.1 degrees, pulse 67, respirations 20, blood pressure 126/68. General: Patient is awake, alert, no acute distress. HEENT: Normocephalic, atraumatic. Pupils equal, round, reactive to light. Sclerae nonicteric. Cardiovascular: Regular rate and rhythm. Abdomen: Soft, nontender. Positive bowel sounds. DIAGNOSTIC RESULTS/LABORATORY: Hematology: White count 5.64, hemoglobin 10.4, hematocrit 32, MCV 90.7, platelets 167,000. Chemistry: Sodium 142, potassium 3.5, chloride 108, CO2 27, BUN 3, creatinine 0.7, glucose 69. Colonoscopy done on 03/18/2017 showed diverticulosis. Otherwise, normal colon. Biopsies were done to check for microscopic colitis. Pathology is pending. Patient was placed on Welchol 625 mg twice daily. ASSESSMENT AND PLAN: 1. Diarrhea, improving. 2. Hypertension. 3. Hypokalemia. Potassium has been replaced. PLAN: Continue supportive care. Continue Welchol. We will follow up for pathology results and further plans will be made according to findings. Patient's diarrhea is improving. We will advance her to a gastrointestinal soft diet with no milk or dairy products. Further plans will be made as needed. Dictated by LACEY Villalpando for Ehsan Magallon MD cc: LACEY Castro MD
--- NOTE | 2017-03-19 16:22 | PROGRESS NOTE ---
DATE: 03/19/2017 SUBJECTIVE: This patient is feeling better. As per the patient, she had 2 bowel movements today and most of it was mucus. No blood. She denies nausea, vomiting, fever, or chills. OBJECTIVE: Vital Signs: Temperature 97.6 degrees, pulse 64, respiratory rate 16, blood pressure 134/74, O2 saturation 92% on room air. HEENT: Head normocephalic. No trauma. PERRLA. Neck: Supple. No JVD. No masses. Central trachea. Chest: Clear to auscultation. No wheezing. No rales. Cardiovascular: RRR. Abdomen: Soft, nontender, nondistended. No hepatosplenomegaly. Extremities: No edema. No clubbing. No cyanosis. Neurological: The patient is alert and oriented x3. No focal neurological deficits. LABORATORY: WBC 5.6, hemoglobin 10.4, hematocrit 32, platelets 167,000. Sodium 142, potassium 3.5, chloride 108, bicarbonate 27, BUN 3, creatinine 0.7, glucose 69, calcium 7.6. ASSESSMENT AND PLAN: 1. Acute diarrhea. This patient had a colonoscopy recently. We already stopped the antibiotics and the Protonix. This patient is getting better. I will follow the recommendations of the Gastroenterology Department. 2. Gastroenteritis. As I mentioned before, we already stopped the antibiotics. She is getting IV fluids. 3. Hypokalemia, resolved. 4. Hypertension. Continue with the same management. The blood pressure is stable. 5. Acute kidney injury. Resolved. Overall, this patient is doing much better. The diet has been has been advanced today. If she tolerates diet and she is feeling fine by tomorrow, probably we will discharge this patient. cc: Derrick Berry MD
[2017-03-19] MEDS: XANAX PO PRN (20:48)
[2017-03-19] MEDS: REQUIP PO SCH (20:48)
[2017-03-20] MEDS: NS + KCL 20 MEQ 1,000 ML IV SCH ×3 (03:59→13:29)
[2017-03-20] MEDS: ZOFRAN IV PRN ×2 (04:01→13:35)
[2017-03-20 06:33] LABS: MANUAL DIFF NEEDED? NO
[2017-03-20 06:34] LABS: BASO% 0.4 % (0.0-0.8); EOS# 0.06 X1000 (0.0-0.7); EOS% 1.2 % (0.0-10.0); HEMATOCRIT 34.2 % (37.0-47.0); IMM GRAN# 0.02 X1000 (0.0-0.04); IMM GRAN% 0.4 % (0.0-0.5); LYMPH# 0.75 X1000 (1.2-3.4); LYMPH% 14.6 % (20.5-51.1); MCH 29.5 PG (27-31); MCHC 32.2 g/dL (33-37); MCV 91.7 FL (81-99); MONO# 0.48 X1000 (0.11-0.59); MONO% 9.3 % (1.7-9.3); MPV 10.2 FL (7.4-10.4); NEUT% 74.1 % (42.2-75.2); PLT 180 X1000 (130-400); RBC 3.73 XMIL (4.2-5.4)
[2017-03-20 06:51] LABS: AGAP 7; BUN 5 mg/dL (8-22); CALCIUM 7.7 mg/dL (8.8-10.2); CHLORIDE 107 mmol/L (98-107); COSMO 274; POTASSIUM 4.5 mmol/L (3.5-5.1); SODIUM 139 mmol/L (136-145); TCO2 25 mmol/L (25-35)
[2017-03-20] MEDS: ALTACE PO SCH (08:52)
[2017-03-20] MEDS: WELCHOL PO SCH (08:52)
[2017-03-20] MEDS: ELIQUIS PO SCH (08:53)
[2017-03-20] MEDS: CORDARONE PO SCH (08:53)
[2017-03-20] MEDS: KLOR-CON PO SCH (08:53)
[2017-03-20] MEDS: ZANTAC PO SCH (08:53)
[2017-03-20] MEDS: LOMOTIL PO SCH (11:19)
[2017-03-20] MEDS ORDERED: WELCHOL PO PRN (12:00)
[2017-03-20 15:09] VITALS: BP 175/102
--- NOTE | 2017-03-20 21:35 | DISCHARGE SUMMARY ---
ADMISSION DATE: 03/14/2017 DISCHARGE DATE: 03/20/2017 CONSULTATIONS: Argelia Adames MD with Gastroenterology. PERTINENT PROCEDURES: 1. Abdomen and pelvis CT showed questionable colitis in the sigmoid colon. No renal stones or hydronephrosis. Hysterectomy. Cardiomegaly with left basilar atelectasis or tiny infiltrate. 2. Colonoscopy showed diverticulosis. Otherwise normal colon performed by Dr. Magallon. DISCHARGE DIAGNOSES: 1. Acute diarrhea status post colonoscopy stable. 2. Gastroenteritis. The patient was adequately hydrated with fluids. Resolved. 3. Hypokalemia resolved. 4. Hypertension. Continue home medications. 5. Acute kidney injury resolved. HOSPITAL COURSE: Ms. Patten is an 86-year-old female who carries a history of hypertension, atrial fibrillation, presumptive restless leg syndrome and symptomatic bradycardia. She reported with 3 weeks of persistent diarrhea. She had also been around her sister who developed persistent nausea and diarrhea for 3 weeks. No vomiting. Her diarrhea was reportedly nonbloody, nonmucoid, with no melena. Her sister has since recovered over 2 weeks ago but continues to have anywhere from 10-20 loose stools. They are aggravated by eating. It also wakes her up at night. She has no abdominal pain but occasional abdominal cramping preceding bowel movement. No fever or chills. She denies any antibiotic use. She was given Flagyl and Cipro by her stretcher operator after her C. diff was negative over a week ago. Neither the Cipro or the Flagyl has helped her diarrhea. She denied any travel or contact with sick animals. The patient was admitted for gastroenteritis, aggressively hydrated with fluids and electrolyte replacement. CT scan of the abdomen was performed. It did show questionable colitis in the sigmoid colon. Dr. Adames was consulted. The patient was placed on IV Levaquin and Flagyl. She did undergo a colonoscopy with Dr. Magallon that showed diverticulosis, otherwise it was a normal colon. He recommended continuing her symptomatic treatment. She was started on a full liquid diet that she tolerated well and advanced as tolerated. Follow up outpatient with him on her biopsy. He felt there was no need to continue her antibiotics because there was no evidence of infection as well as stopping her PPI. The patient's bowel movements significantly decreased. She did have 2 bowel movements yesterday that were mostly mucus. The patient is appropriate for discharge home today. Temperature is 97.8 degrees, heart rate 77, respirations 16, blood pressure 151/92, O2 is 98% on room air. DISCHARGE DIET: GI soft. DISCHARGE MEDICATIONS PER DR. QUIJANO: 1. Tylenol 650 mg p.o. q.6 hours p.r.n. 2. Xanax 0.25 mg p.o. daily. 3. Amiodarone 200 mg p.o. daily. 4. Eliquis 5 mg p.o. b.i.d. 5. Welchol 625 mg p.o. b.i.d. p.r.n. 6. Dexilant 60 mg p.o. daily. 7. Klor-Con 10 mEq p.o. daily. 8. Ramipril 2.5 mg p.o. daily. 9. Requip 0.25 mg p.o. at bedtime. FOLLOWUP: The patient is being discharged home with home health. She will follow up with Dr. Magallon as well as her primary care physician, Dr. Anita Johnson. She can return to the ED for any worsening of symptoms. DISCHARGE TIME: 30 minutes. Dictated by LACEY Knox for Derrick Berry MD cc: MD Anita Siddiqui MD
== END 2017-03-20 15:11 | disposition home health service (06) ==
LOC: ED 19:24 → SUATTDRO 22:39 → 3N 22:39
PROVIDERS: ATTEND Internal Medicine